=== PATIENT | female | born 1990 | race Caucasian/White ===

== ENCOUNTER 2018-05-27 11:22 | Inpatient (IN) ==
[2018-05-27] MEDS ORDERED: RINGER'S SOLUTION,LACTATED 1,000 ML IV PRN (18:08)
[2018-05-27] MEDS ORDERED: NALBUPHINE HCL 10 MG/ML AMPUL IV PRN ×2 (18:08)
[2018-05-27] MEDS ORDERED: LIDOCAINE HCL 50 ML VIAL PERI PRN (18:08)
[2018-05-27] MEDS ORDERED: ONDANSETRON HCL/PF 2 MG/ML VIAL IV PRN (18:08)
[2018-05-27] MEDS ORDERED: RINGER'S SOLUTION,LACTATED 1,000 ML IV ONE (18:08)
[2018-05-27] MEDS ORDERED: OXYTOCIN/DEXTROSE 5%-WATER 30 UNITS/500 ML BAG IV ONE (18:08)
[2018-05-27 18:29] LABS: Hematocrit 35.1 % (37.0-47.0); Hemoglobin 11.4 gm/dL (12.5-16.0); Mean Corpuscular Hemoglobin 27.9 pg (27-31); Mean Corpuscular Hgb Conc 32.5 g/dl (32-36); Neutrophil % 69.3 % (42-75.0); Platelet Count 150 K/mm3 (150-450); Red Blood Count 4.08 M/mm3 (4.2-5.4); White Blood Count 7.2 K/mm3 (4.0-10.5)
[2018-05-27 18:44] LABS: Albumin * 2.6 gm/dl (3.4-5.0); Anion Gap 15.9 mmol/L (6.8-13.8); BUN/Creatinine Ratio 6.5 (9.0-21.6); Bilirubin, Total 0.5 mg/dL (0.0-1.1); Ca. Corrected For Albumin 9.4 mg/dL (8.4-10.2); Calcium * 8.6 mg/dL (7.9-10.9); Carbon Dioxide 21.4 mmol/L (24-32.6); Potassium 3.3 mmol/L (3.4-4.6); Total Protein 6.7 gm/dL (6.2-8.2)
[2018-05-27 19:00] LABS: Cocaine Ur Negative (NEGATIVE); Urine Barbiturate Negative (NEGATIVE); Urine Benzodiazepines Negative (NEGATIVE); Urine Opiates Negative (NEGATIVE); Urine PCP Negative (NEGATIVE); Urine THC Negative (NEGATIVE)
[2018-05-27] MEDS: MISOPROSTOL 100 MCG TABLET VG PRN (19:04)
[2018-05-28] MEDS: MISOPROSTOL 100 MCG TABLET VG PRN ×2 (01:04→05:27)
--- NOTE | 2018-05-28 09:12 | HP ---
Chief Complaint - Chief Complaint Date of Service: 05/28/18 Time of Service: 09:09 Chief Complaint: induction of labor History of Present Illness: The patient presents for medical induction of labor due to chronic hypertension. She reports regular ctx that are getting stronger. She denies vb or lof. Fetus is active. Medical History (Last Reviewed 05/08/18 @ 09:06 by Brigid Cheatham) Chronic hypertension Onset Date: 12/02/13 Heart murmur Onset Date: Unknown Scoliosis , threatened Onset Date: 01/20/13 High Risk Onset Date: 12/02/13 Undelivered Onset Date: 06/26/13 Thrombocytopenia Onset Date: ~2013 w/ Surgical History: Surgical History (Last Reviewed 05/08/18 @ 09:06 by Brigid Cheatham) History of lumbosacral spine surgery Onset Date: ~2005 Family History: Family History (Last Reviewed 05/08/18 @ 09:06 by Brigid Cheatham) Brother Asthma Father Hypertension Mother Hypertension Social History: Preferred Language Japanese Smoking Status Never smoker (Last Updated 05/27/18 @ 09:38 by Virginie Reyes MD) No Social History Section defined Review Of Systems (GEN) - Review of Systems Misc: All systems neg except as marked Allergies/Adverse Reactions: Allergies Allergy/AdvReac Type Severity Reaction Status Date / Time No Known Allergies Allergy Verified 05/27/18 18:35 Home Medications: HOME MEDICATIONS Vits96/Iron Fum/Folic [ S] 1 tab PO DAILY 01/21/14 [Last Taken 01/20/14 08:00] aspirin 81 mg chewable tablet 81 mg PO DAILY 11/29/17 [Last Taken 05/27/18 09:00] Exam - Exam Vital Signs: Vital Signs - Last Taken Temp 37.5 C 05/27/18 19:27 Pulse 86 05/27/18 19:27 Resp 16 05/27/18 19:27 BP 140/84 H 05/27/18 19:27 Pulse Ox 99 05/27/18 19:27 Constitutional: Present: Alert, Oriented x3, Cooperative, No distress Respiratory: Present: lungs clear, normal breath sounds Cardiovascular/Chest: Present: regular rate, rhythm, no chest tenderness Abdomen: Present: soft, nontender, nondistended /Rectal: Present: Other - cvx 4/80/-2 vertex. AROM for a moderate amount of clear fluid Extremity: Present: non-tender, no calf tenderness Skin Exam: Present: normal color, warm/dry, no cyanosis Appearance: Present: appropriate appearance Eye contact: Present: cooperative Thoughts: Present: normal thought pattern Diagnostic Studies: Abnormal Lab Results 05/27/18 05/27/18 05/27/18 Range/Units 18:17 18:17 18:30 RBC 4.08 L (4.2-5.4) M/mm3 Hgb 11.4 L (12.5-16.0) gm/dL Hct 35.1 L (37.0-47.0) % Potassium 3.3 L (3.4-4.6) mmol/L Carbon Dioxide 21.4 L (24-32.6) mmol/L Anion Gap 15.9 H (6.8-13.8) mmol/L BUN/Creatinine Ratio 6.5 L (9.0-21.6) ALT 10 L (19-67) U/L Albumin 2.6 L (3.4-5.0) gm/dl U Random Total Protein 23.0 H (0-12) mg/dL Laboratory Results WBC 7.2 K/mm3 (4.0-10.5) 05/27/18 18:17 RBC 4.08 M/mm3 (4.2-5.4) L 05/27/18 18:17 Hgb 11.4 gm/dL (12.5-16.0) L 05/27/18 18:17 Hct 35.1 % (37.0-47.0) L 05/27/18 18:17 MCV 86.0 fl (78-100) 05/27/18 18:17 MCH 27.9 pg (27-31) 05/27/18 18:17 MCHC 32.5 g/dl (32-36) 05/27/18 18:17 RDW 14.0 % (11.5-14.0) 05/27/18 18:17 Plt Count 150 K/mm3 (150-450) 05/27/18 18:17 MPV 11.0 fl (8-12.5) 05/27/18 18:17 Immature Gran % (Auto) 0.40 % (0.001-0.429) 05/27/18 18:17 Immature Gran # (Auto) 0.03 K/mm3 (0.000-0.0310) 05/27/18 18:17 Neutrophils % 69.3 % (42-75.0) 05/27/18 18:17 Lymphocytes % 21.7 % (20-51) 05/27/18 18:17 Monocytes % 7.0 % (0.0-9) 05/27/18 18:17 Eosinophils % 1.5 % (0.0-3.0) 05/27/18 18:17 Basophils % 0.1 % (0.0-1.0) 05/27/18 18:17 Nucleated RBC % 0.0 k/mm3 (0-1) 05/27/18 18:17 Neutrophils # 5.0 K/mm3 (1.3-6.0) 05/27/18 18:17 Lymphocytes # 1.55 k/mm3 (1.5-3.5) 05/27/18 18:17 Monocytes # 0.5 k/mm3 (0.0-1.0) 05/27/18 18:17 Eosinophils # 0.1 k/mm3 (0.0-0.7) 05/27/18 18:17 Absolute Basophils 0.0 k/mm3 (0.0-0.1) 05/27/18 18:17 Sodium 136 mmol/L (132-142) 05/27/18 18:17 Plasma Sodium 136 mmol/L (130-142) 05/27/18 18:17 Potassium 3.3 mmol/L (3.4-4.6) L 05/27/18 18:17 Chloride 102 mmol/L (97-106) 05/27/18 18:17 Carbon Dioxide 21.4 mmol/L (24-32.6) L 05/27/18 18:17 Anion Gap 15.9 mmol/L (6.8-13.8) H 05/27/18 18:17 BUN 4 mg/dL (3-23) 05/27/18 18:17 Creatinine 0.62 mg/dL (0.4-1.4) 05/27/18 18:17 Est GFR (Non-Af Amer) 120 mL/min (60-130) D 05/27/18 18:17 BUN/Creatinine Ratio 6.5 (9.0-21.6) L 05/27/18 18:17 Random Glucose 95 mg/dL (70-110) 05/27/18 18:17 Calcium 8.6 mg/dL (7.9-10.9) 05/27/18 18:17 Calcium Adj for Albumin 9.4 mg/dL (8.4-10.2) 05/27/18 18:17 Total Bilirubin 0.5 mg/dL (0.0-1.1) 05/27/18 18:17 AST 19 U/L (0-48) 05/27/18 18:17 ALT 10 U/L (19-67) L 05/27/18 18:17 Alkaline Phosphatase 141 U/L (50-170) 05/27/18 18:17 Total Protein 6.7 gm/dL (6.2-8.2) 05/27/18 18:17 Albumin 2.6 gm/dl (3.4-5.0) L 05/27/18 18:17 Ur Random Creatinine 122.6 mg/dL (60-200) 05/27/18 18:30 U Random Total Protein 23.0 mg/dL (0-12) H 05/27/18 18:30 U [place] Prot/Creat Ratio 188 mg/gm (0-199) 05/27/18 18:30 Urine Opiates Screen Negative (NEGATIVE) 05/27/18 18:17 Barbiturate Screen Negative (NEGATIVE) 05/27/18 18:17 Ur Phencyclidine Scrn Negative (NEGATIVE) 05/27/18 18:17 Urine Amphetamine Negative (NEGATIVE) 05/27/18 18:17 U Benzodiazepines Scrn Negative (NEGATIVE) 05/27/18 18:17 Urine Cocaine Screen Negative (NEGATIVE) 05/27/18 18:17 Urine Marijuana (THC) Negative (NEGATIVE) 05/27/18 18:17 Blood Type A Positive 05/27/18 18:17 Antibody Screen Negative 05/27/18 18:17 Assessment/Plan - Narrative Narrative: 28 year old @ 39w 1d who presents for IOL due to CHTN. AROM for clear fluid. Normal labs on admission including normal platelets. Pt will have epidural. Check after epidural and if unchanged start pitocin.
[2018-05-28] MEDS ORDERED: BUPIVACAINE HCL/0.9 % NACL/PF 250 ML EP PRN (09:24)
[2018-05-28] MEDS ORDERED: ONDANSETRON HCL/PF 2 MG/ML VIAL IV PRN (09:24)
[2018-05-28] MEDS ORDERED: NALOXONE HCL 1 MG/1 ML SYRG IV PRN (09:24)
[2018-05-28] MEDS ORDERED: fentaNYL CITRATE/PF 50 MCG/ML AMPUL IT SCH (09:30)
[2018-05-28] MEDS ORDERED: LIDOCAINE HCL/EPINEPHRINE 20 ML VIAL ONE (09:41)
--- NOTE | 2018-05-28 09:41 | ANES ---
Anesthesia Pre Procedure Eval Vitals/Labs: Last Vital Signs Temp 37.5 C 05/27/18 19:27 Pulse 86 05/27/18 19:27 Resp 16 05/27/18 19:27 BP 140/84 H 05/27/18 19:27 Pulse Ox 99 05/27/18 19:27 HOME MEDICATIONS Vits96/Iron Fum/Folic [ S] 1 tab PO DAILY 01/21/14 [Last Taken 01/20/14 08:00] aspirin 81 mg chewable tablet 81 mg PO DAILY 11/29/17 [Last Taken 05/27/18 09:00] Allergies/Adverse Reactions: Allergies Allergy/AdvReac Type Severity Reaction Status Date / Time No Known Allergies Allergy Verified 05/27/18 18:35 - Planned Procedure Planned Procedure: MEDICAL INDUCTION Medication List Reviewed:: Yes Allergies Verified: Yes Medical History (Last Reviewed 05/28/18 @ 09:40 by Aman Linares CRNA) Chronic hypertension Onset Date: 12/02/13 Heart murmur Onset Date: Unknown Scoliosis , threatened Onset Date: 01/20/13 High Risk Onset Date: 12/02/13 Undelivered Onset Date: 06/26/13 Thrombocytopenia Onset Date: ~2013 w/ Surgical History (Last Reviewed 05/28/18 @ 09:40 by Aman Linares CRNA) History of lumbosacral spine surgery Onset Date: ~2005 Family History (Last Reviewed 05/28/18 @ 09:40 by Aman Linares CRNA) Brother Asthma Father Hypertension Mother Hypertension - Family Anesthesia History Family History:: no untoward family reactions to anesthesia, no familial bleeding tendencies, no family history of clotting disorders, no family history of premature - Airway/Neck/Teeth Within Normal Limits:: Yes Teeth Condition: intact Denture Type: Full upper Neck Exam: full range of motion Mallampatti Score: 2 Thyromental (T-M) distance: > 6 cm Mandibulo Hyoid distance: > 3 cm - Respiratory Respiratory Physical: lungs clear Smoking Status: Never smoker Sleep Apnea currently treated: No Sleep Apnea by current assessment: No - Cardiovascular Cardiac History: angina Tolerate Activity: Fair Heart Sounds: S1 & S2, Regular - Anesthesia Assessment and Plan ASA Class: PS, II, E Anesthesia Type Plan: Epidural - CSE for labor analgesia.
[2018-05-28] MEDS ORDERED: LIDOCAINE HCL/EPINEPHRINE 20 ML VIAL IJ ONE (09:45)
--- NOTE | 2018-05-28 10:02 | ANES ---
Anesthesia Procedure Note Procedure Note: ANESTHESIA PROCEDURE NOTE Date of Procedure: 05/28/2018 Time of procedure: 9:40 AM. Performed by: Aman Linares CRNA, MSN Cage Maker Machine: Myrna Puga RN. Preprocedure diagnosis: Active labor, labor pain. Post procedure diagnosis: Same. Procedure:Epidural for labor analgesia L4 5. Indications: Labor pain. Findings: See below. Details of the procedure: The patient was placed on the side of the bed in sitting positionand prepped with DuraPrep then draped in a sterile fashion. Lidocaine 1% was infiltrated to the skin and subcutaneous tissues at the level of the L4 5 interspace. An 18-gauge Touhy needle was used to approach the epidural space with loss of resistance technique. Once loss of resistance was achieved a 27-gauge spinal needle was passed through the epidural needle and CSF was contacted. After CSF returned, 20 mcg of fentanyl was injected in the spinal needle was removed the epidural catheter was then threaded approximately 4 cm in the epidural needle was removed. The catheter was taped in place and after careful aspiration 3 mL of 2% lidocaine with 1-200,000 epinephrine was injected without change in maternal heart rate or sensorium. . EBL: Minimal. Fluids: N/A. Specimen: N/A. Post procedure condition: The patient tolerated the procedure well with good r elief. No complications were noted. Thank you for this consultation. Aman Linares CRNA, MSN
--- NOTE | 2018-05-28 10:03 | ANES ---
Post Anesthesia Discharge - Transfer of Care Transfer of Care handoff given to nurse: Yes - Discharge from PACU Discharge from PACU when meets criteria: Yes - Comfortable post CSE.
--- NOTE | 2018-05-28 10:21 | ANES ---
Post Anesthesia Assessment - Vital Signs Vitals: Last Vital Signs Temp 37.5 C 05/27/18 19:27 Pulse 86 05/27/18 19:27 Resp 16 05/27/18 19:27 BP 140/84 H 05/27/18 19:27 Pulse Ox 99 05/27/18 19:27 Airway Patency: Normal - Mental Status Level Of Consciousness: Awake, Alert, Appropriate - Pain Level Pain Score: 3 - much improved, epidural pump initiated. - N/V Assessment Nausea/Vomiting Presence: None Dehydration:: No
[2018-05-28] MEDS ORDERED: IBUPROFEN 800 MG TABLET PO PRN (11:04)
[2018-05-28] MEDS ORDERED: BISACODYL 10 MG SUPP.RECT RC PRN (11:04)
[2018-05-28] MEDS ORDERED: oxyCODONE HCL/ACETAMINOPHEN 1 TAB TABLET PO PRN ×2 (11:04)
[2018-05-28] MEDS ORDERED: GLYCERIN/WITCH HAZEL LEAF 40 APPL BOX TP PRN (11:04)
[2018-05-28] MEDS ORDERED: SENNOSIDES 8.6 MG TABLET PO PRN (11:04)
[2018-05-28] MEDS ORDERED: BENZOCAINE/MENTHOL 81 SPRAY CAN TP PRN (11:04)
[2018-05-28] MEDS ORDERED: HYDROCORTISONE 30 APPL TUBE TP PRN (11:04)
[2018-05-28] MEDS ORDERED: OXYTOCIN/DEXTROSE 5%-WATER 30 UNITS/500 ML BAG IV ONE (11:04)
--- NOTE | 2018-05-28 11:13 | OR ---
Operative Report - Dictated Report Narrative: Date of delivery: 05/28/2018 Time of delivery: 1033 Gender: male weight: 3567 grams APGARS Description of the procedure: The patient is a 28 yo @ 39w 1d who presented to labor and delivery for a medical induction of labor due to chronic hypertension. She progressed to complete dilation. The baby delivered in the direct OA position. A tight nuchal cord was noted and the cord was not reducible so it was cut at the perineum and the rest of the was delivered atraumatically. The baby had no tone and thus it was immediately handed to the nursing staff for resuscitation. The placenta was delivered by expression and appeared intact. The placenta was sent for pathological analysis. Bilateral labial lacerations were repaired as well as a first degree vaginal laceration. 4-0 vicryl was used for the labial lacerations and 2-0 vicryl for the vaginal laceration. EBL: 100 mL Complications: none Specimen: placenta
[2018-05-28] MEDS ORDERED: MISOPROSTOL 200 MCG TABLET RC ONE (14:11)
--- NOTE | 2018-05-28 16:56 | PN ---
Progess Note - Interim Date: 05/28/18 Time: 16:54 Narrative: 05/28/18 16:54 Called to bedside by RN due to concerns that the patient fundus was high and shifted to the right. An examination led me to believe that there was clot in the uterus. A vaginal exam was performed and clot were removed. Then a bedside ultrasound was performed which confirmed that clot were remaining in the uterus. A second exam was performed with a small amount of additional clot. The total blood loss is estimated to be 200mL. Given manual uterine exploration will give Ancef 2 grams IV x1 for endometritis prevention. Bleeding was minimal and fundal exam improved.
[2018-05-28] MEDS ORDERED: ceFAZolin SODIUM/DEXTROSE,ISO 2 GM/50 ML BAG IV ONE (16:57)
[2018-05-28] MEDS: DOCUSATE SODIUM 100 MG CAPSULE PO SCH (20:58)
--- NOTE | 2018-05-29 09:10 | PN ---
Subjective - Date and Time Seen Date: 05/29/18 Time: 09:07 Subjective Narrative: Pt without complaints Objective Objective Narrative: See vital signs - Review of Systems Generalized/Overall Review: Reports: No Symptoms Reported Misc: All systems neg except as marked - Vitals Vitals: Last Vital Signs Temp 36.7 C 05/29/18 08:06 Pulse 98 05/29/18 08:06 Resp 16 05/29/18 08:06 BP 146/92 H 05/29/18 08:06 Pulse Ox 99 05/29/18 08:06 - Exam Constitutional: Present: Alert, Oriented x3, Cooperative, No distress Abdomen: Present: soft, nontender, nondistended - fundus at umbilicus and midline Extremity: Present: non-tender, no calf tenderness Skin Exam: Present: normal color, warm/dry, no cyanosis Appearance: Present: appropriate appearance Eye contact: Present: cooperative Thoughts: Present: normal thought pattern Assessment/Plan Plan Narrative: PPD 1 s/p Doing well Bleeding is minimal. Bleeding precautions given The patient is a chronic hypertensive and has elevated BPs. Start procardia 60mg PO daily. Follow-up with PCP 2 weeks after discharge Discharge tomorrow
[2018-05-29] MEDS: DOCUSATE SODIUM 100 MG CAPSULE PO SCH ×2 (09:59→21:19)
[2018-05-29] MEDS: NIFEdipine 30 MG TAB.SR.24H PO SCH (10:00)
--- NOTE | 2018-05-30 08:59 | PN ---
Subjective - Date and Time Seen Date: 05/30/18 Time: 08:55 Subjective Narrative: Pt without complaints Objective Objective Narrative: See vital signs - Review of Systems Generalized/Overall Review: Reports: No Symptoms Reported Misc: All systems neg except as marked - Vitals Vitals: Last Vital Signs Temp 36.9 C 05/30/18 08:11 Pulse 97 05/30/18 08:11 Resp 18 05/30/18 08:11 BP 138/80 05/30/18 08:11 Pulse Ox 99 05/30/18 08:11 - Exam Constitutional: Present: Alert, Oriented x3, Cooperative, No distress Abdomen: Present: soft, nontender, nondistended Extremity: Present: non-tender, no calf tenderness Skin Exam: Present: normal color, warm/dry, no cyanosis Appearance: Present: appropriate appearance Eye contact: Present: cooperative Thoughts: Present: normal thought pattern Assessment/Plan Plan Narrative: PPD 2 s/p Doing well BP in the mild range on procardia. Continue procardia. Follow-up with PCP for BP management Discharge home - Problems/Diagnosis (1) hemorrhage Problem: Acute (2) Placental infarction Problem: Acute (3) hypertension Problem: Acute
[2018-05-30] MEDS: NIFEdipine 30 MG TAB.SR.24H PO SCH (09:06)
[2018-05-30] MEDS: DOCUSATE SODIUM 100 MG CAPSULE PO SCH (09:06)
[2018-05-30 10:34] VITALS: BP 139/79
== END 2018-05-30 11:10 | disposition home or self-care (01) | DRG 806 ==
LOC: OB 17:46
PROVIDERS: ADMIT Obstetrics & Gynecology; ATTEND Obstetrics & Gynecology
CPT/HCPCS: 36415; 59025; 80053; 80307; 82570; 84155; 84156; 85025; 86850; 86900; 88307